=== PATIENT | male | born 1935 | race Caucasian/White ===

== ENCOUNTER 2022-11-25 11:12 | Observation (INO) ==
[2022-11-25 13:11] LABS: ABS Lymphocytes 0.9 10^3/uL (1.0-4.8); ABS Monocytes 0.6 10^3/uL (0.0-1.1); ABS Neutrophils 5.8 10^3/uL (1.5-7.6); Eosinophil % 0.3 %; Hematocrit 36.2 % (38-53); Hemoglobin 12.5 g/dL (13.2-16.3); Lymphocyte % 12.3 %; Mean Corpuscular Hemoglobin 31.2 pg (27-33); Mean Corpuscular Hgb Conc 34.5 g/dL (31-36); Mean Corpuscular Volume 90.5 fL (80-97); Mean Platelet Volume 7.6 fL (7.5-11.2); Platelet Count 213 10^3/uL (150-450); Red Blood Count 4.01 10^6/uL (4.06-5.63); Red Cell Distribution Width 15.7 % (12-17); White Blood Count 7.3 10^3/uL (3.6-10.2)
[2022-11-25 13:35] LABS: High Sens Troponin Baseline 5 pg/mL (<20)
[2022-11-25 14:15] LABS: ALT 10 U/L (7-52); AST 13 U/L (13-39); Alkaline Phosphatase 55 U/L (35-149); Anion Gap 7 mmol/L (2-16); Blood Urea Nitrogen 18 mg/dL (6-24); CO2 Carbon Dioxide 27 mmol/L (22-32); Calcium 9.5 mg/dL (8.6-10.3); Chloride 92 mmol/L (101-111); Creatine Kinase 44 U/L (10-223); Creatinine, Serum 0.79 mg/dL (0.67-1.17); Glucose 133 mg/dL (70-100); Lipase < 10 U/L (11.0-82.0); Magnesium 1.8 mg/dL (1.9-2.7); Potassium 4.4 mmol/L (3.5-5.0); Sodium 126 mmol/L (135-145); eGFR CKD-EPI 85.4 (>60)
[2022-11-25 14:46] LABS: Urine Appearance Clear; Urine Bilirubin Negative (Negative); Urine Blood Negative (Negative); Urine Color Straw; Urine Glucose Negative (Negative); Urine Ketones Negative (Negative); Urine Nitrite Negative (Negative); Urine Protein Negative (Negative); Urine Specific Gravity 1.006 (1.002-1.030); Urine Urobilinogen Negative (Negative)
[2022-11-25 14:52] LABS: High Sensitivity Troponin 1 Hr 8 pg/mL (<20)
[2022-11-25] MEDS ORDERED: Magnesium Sulfate 2 gm BAG 2 GM/50 ML BAG IVPB ONE (17:03)
[2022-11-25 17:39] LABS: Osmolality Serum 270 mOsm/kg (275-295)
[2022-11-25] MEDS ORDERED: Dextrose 50% Syringe 50 ml 25 GM/50 ML SYRINGE IV PUSH PRN (19:09)
[2022-11-25] MEDS ORDERED: hydrALAZINE 20 mg/ml 1 ML Vial IV IV SLOW PU PRN (19:11)
[2022-11-25] MEDS ORDERED: Lorazepam PYXIS KEY PRN (20:19)
[2022-11-25] MEDS ORDERED: LORazepam 2 mg VIAL 1 ml IV PUSH ONE (20:19)
[2022-11-25 21:01] LABS: TSH Ultra Thyroid Stim Horm 1.15 mcIU/mL (0.34-5.60)
[2022-11-25 21:03] LABS: Free T4 1.05 ng/dL (0.61-1.12)
[2022-11-25 21:12] LABS: Folate 19.53 ng/mL (5.90-24.80)
[2022-11-25 21:13] LABS: Vitamin B12 339 pg/mL (180-914)
[2022-11-25] MEDS: levETIRAcetam 500 MG IVPREMIX 500 MG/100 ML BAG IV SCH (22:34)
[2022-11-25] MEDS: Enoxaparin 40 MG/0.4 ML SYR SUBCUT SCH (22:49)
[2022-11-25] MEDS: Latanoprost 0.005% 2.5 ml BTL BOTH EYES SCH (22:49)
[2022-11-26 01:10] LABS: Urine Osmo 278 mOsm/kg (150-1150)
[2022-11-26 01:19] LABS: Urine Sodium Concentration 68 mmol/L
[2022-11-26 01:55] LABS: Urine Chloride Concentration 61 mmol/L
[2022-11-26 06:16] LABS: ABS Lymphocytes 0.8 10^3/uL (1.0-4.8); ABS Monocytes 0.6 10^3/uL (0.0-1.1); ABS Neutrophils 5.9 10^3/uL (1.5-7.6); ABS Nucleated RBC 0.01 10^3/ul; Hematocrit 35.1 % (38-53); Lymphocyte % 10.4 %; Mean Corpuscular Hemoglobin 31.1 pg (27-33); Mean Corpuscular Hgb Conc 34.3 g/dL (31-36); Mean Corpuscular Volume 90.8 fL (80-97); Mean Platelet Volume 7.9 fL (7.5-11.2); Nucleated Red Blood Cells % 0.1 /100 WBC (0.0-0.4); Platelet Count 210 10^3/uL (150-450); Red Blood Count 3.87 10^6/uL (4.06-5.63); Red Cell Distribution Width 15.4 % (12-17); White Blood Count 7.3 10^3/uL (3.6-10.2)
[2022-11-26 06:31] LABS: Calcium 9.2 mg/dL (8.6-10.3); Creatinine, Serum 0.87 mg/dL (0.67-1.17); Magnesium 2.3 mg/dL (1.9-2.7); Phosphorus 4.3 mg/dL (2.5-5.0); Potassium 4.5 mmol/L (3.5-5.0)
[2022-11-26] MEDS: levETIRAcetam 500 MG IVPREMIX 500 MG/100 ML BAG IV SCH ×2 (10:33→22:08)
[2022-11-26] MEDS: Latanoprost 0.005% 2.5 ml BTL BOTH EYES SCH (22:02)
[2022-11-26] MEDS: Enoxaparin 40 MG/0.4 ML SYR SUBCUT SCH (22:05)
[2022-11-27 06:18] LABS: ABS Eosinophils 0.1 10^3/uL (0.0-0.5); ABS Lymphocytes 1.7 10^3/uL (1.0-4.8); ABS Monocytes 0.7 10^3/uL (0.0-1.1); ABS Neutrophils 3.7 10^3/uL (1.5-7.6); Eosinophil % 1.4 %; Hematocrit 35.2 % (38-53); Hemoglobin 12.2 g/dL (13.2-16.3); Lymphocyte % 26.9 %; Mean Corpuscular Hemoglobin 31.2 pg (27-33); Mean Corpuscular Hgb Conc 34.6 g/dL (31-36); Mean Platelet Volume 7.8 fL (7.5-11.2); Nucleated Red Blood Cells % 0.1 /100 WBC (0.0-0.4); Platelet Count 189 10^3/uL (150-450); Red Blood Count 3.91 10^6/uL (4.06-5.63); Red Cell Distribution Width 15.4 % (12-17); White Blood Count 6.3 10^3/uL (3.6-10.2)
[2022-11-27 06:34] LABS: Calcium 9.1 mg/dL (8.6-10.3); Magnesium 2.2 mg/dL (1.9-2.7)
[2022-11-27 06:39] LABS: Creatinine, Serum 0.84 mg/dL (0.67-1.17); Phosphorus 3.3 mg/dL (2.5-5.0); eGFR CKD-EPI 83.9 (>60)
[2022-11-27] MEDS: levETIRAcetam 500 MG IVPREMIX 500 MG/100 ML BAG IV SCH (08:18)
[2022-11-27 14:10] VITALS: BP 152/79
== END 2022-11-27 14:50 | disposition home or self-care (01) ==
LOC: EDHOLD 11:12 → ED 11:12 → SUATTDRO 16:58 → MED 19:47
PROVIDERS: ADMIT Internal Medicine; ATTEND Internal Medicine

== ENCOUNTER 2023-01-21 09:48 | Inpatient (IN) ==
[2023-01-21 12:19] LABS: ABS Eosinophils 0.1 10^3/uL (0.0-0.5); ABS Lymphocytes 1.7 10^3/uL (1.0-4.8); ABS Monocytes 0.8 10^3/uL (0.0-1.1); ABS Neutrophils 5.1 10^3/uL (1.5-7.6); Eosinophil % 1.3 %; Hematocrit 41.6 % (38-53); Hemoglobin 14.6 g/dL (13.2-16.3); Lymphocyte % 22.3 %; Mean Corpuscular Hemoglobin 30.6 pg (27-33); Mean Corpuscular Hgb Conc 35.1 g/dL (31-36); Mean Platelet Volume 7.8 fL (7.5-11.2); Nucleated Red Blood Cells % 0.1 /100 WBC (0.0-0.4); Platelet Count 212 10^3/uL (150-450); Red Blood Count 4.78 10^6/uL (4.06-5.63); Red Cell Distribution Width 14.4 % (12-17); White Blood Count 7.7 10^3/uL (3.6-10.2)
[2023-01-21 12:29] LABS: Activated Partial Thrombo Time 33.2 seconds (26.0-38.0); INR 0.97 (0.88-1.18)
[2023-01-21 12:42] LABS: ALT 13 U/L (7-52); AST 17 U/L (13-39); Albumin 4.9 g/dL (3.2-5.2); Albumin/Globulin Ratio 1.6 (1-3); Alkaline Phosphatase 72 U/L (35-149); Anion Gap 11 mmol/L (2-16); Blood Urea Nitrogen 17 mg/dL (6-24); C Reactive Protein < 1.00 mg/L (<8.01); CO2 Carbon Dioxide 27 mmol/L (22-32); Calcium 10.5 mg/dL (8.6-10.3); Chloride 90 mmol/L (101-111); Creatinine, Serum 0.78 mg/dL (0.67-1.17); Glucose 131 mg/dL (70-100); Potassium 3.9 mmol/L (3.5-5.0); Sodium 128 mmol/L (135-145); Total Protein 7.9 g/dL (6.4-8.9); eGFR CKD-EPI 85.8 (>60)
[2023-01-21 12:43] LABS: Urine Appearance Cloudy; Urine Bilirubin Negative (Negative); Urine Blood 1+ (Negative); Urine Color Yellow; Urine Glucose 2+(150 mg/dL) (Negative); Urine Ketones Negative (Negative); Urine Nitrite Negative (Negative); Urine Protein Negative (Negative); Urine Specific Gravity 1.006 (1.002-1.030); Urine Urobilinogen Negative (Negative)
[2023-01-21 12:43] LABS: High Sens Troponin Baseline 6 pg/mL (<20)
[2023-01-21] MEDS ORDERED: NS 0.9% 1000 ml BAG 1,000 ML IV ONE (12:43)
[2023-01-21 13:08] LABS: Urine Bacteria 1+ (Absent); Urine Red Blood Cell Trace(0-2/hpf) (Absent); Urine White Blood Cell 3+(>20/hpf) (Absent)
[2023-01-21 13:57] LABS: High Sensitivity Troponin 1 Hr 6 pg/mL (<20)
[2023-01-21] MEDS ORDERED: cefTRIAXone 1 gm/50 mL D5W 1 GM/50 ML BAG IV ONE (15:03)
[2023-01-21] MEDS ORDERED: NS 0.9% 1000 ml BAG 1,000 ML IV SCH (18:00)
[2023-01-21] MEDS ORDERED: Dextrose 50% Syringe 50 ml 25 GM/50 ML SYRINGE IV PUSH PRN (19:17)
[2023-01-21 21:40] LABS: Calcium (PTH Intact) 9.4 mg/dL (8.6-10.3)
[2023-01-21 21:57] LABS: Osmolality Serum 275 mOsm/kg (275-295); TSH Ultra Thyroid Stim Horm 1.99 mcIU/mL (0.34-5.60)
[2023-01-21] MEDS ORDERED: Haloperidol 5 mg/ml SDV IV/IM 5 MG/ML AMP IV SLOW PU ONE ×2 (23:21)
[2023-01-22] MEDS ORDERED: Haloperidol 5 mg/ml SDV IV/IM 5 MG/ML AMP IV SLOW PU ONE ×4 (02:04→22:51)
[2023-01-22] MEDS: cefTRIAXone 1 gm/50 mL D5W 1 GM/50 ML BAG IV SCH (15:33)
[2023-01-23] MEDS ORDERED: OLANZapine IM (NF) 10 MG VIAL IM ONE (01:31)
[2023-01-23 06:13] LABS: Calcium 9.7 mg/dL (8.6-10.3); Creatinine, Serum 0.68 mg/dL (0.67-1.17); Potassium 3.8 mmol/L (3.5-5.0); eGFR CKD-EPI 89.4 (>60)
[2023-01-23] MEDS: cefTRIAXone 1 gm/50 mL D5W 1 GM/50 ML BAG IV SCH (17:26)
[2023-01-24 05:54] LABS: Calcium 9.3 mg/dL (8.6-10.3); Creatinine, Serum 0.73 mg/dL (0.67-1.17); Potassium 4.3 mmol/L (3.5-5.0); eGFR CKD-EPI 87.5 (>60)
[2023-01-24] MEDS: Aspirin EC 81 mg TAB.EC (enteric coated) PO SCH (10:19)
[2023-01-24 12:39] LABS: XCalcitriol 24 pg/mL (18-64)
[2023-01-24 13:45] LABS: Albumin 3.4 g/dL (3.4-4.7); Flag, M-protein Isotype Negative (Negative); Total Protein 6.5 g/dL (6.3 - 7.9)
[2023-01-24] MEDS: cefTRIAXone 1 gm/50 mL D5W 1 GM/50 ML BAG IV SCH (15:21)
[2023-01-25] MEDS ORDERED: Haloperidol 5 mg/ml SDV IV/IM 5 MG/ML AMP IV SLOW PU ONE (04:47)
[2023-01-25] MEDS: Aspirin EC 81 mg TAB.EC (enteric coated) PO SCH (09:14)
[2023-01-25] MEDS: cefTRIAXone 1 gm/50 mL D5W 1 GM/50 ML BAG IV SCH (15:21)
[2023-01-25] MEDS: Heparin 5000 UNITS/ML 1 mL VIAL SUBCUT SCH (19:58)
[2023-01-25] MEDS: Magnesium Hydroxide LIQ 30 ML UDC PO PRN (19:58)
[2023-01-25] MEDS: Senna TAB 8.6 mg TAB PO PRN (19:58)
[2023-01-26] MEDS: Senna TAB 8.6 mg TAB PO PRN (09:31)
[2023-01-26] MEDS: Heparin 5000 UNITS/ML 1 mL VIAL SUBCUT SCH ×2 (09:31→20:51)
[2023-01-26] MEDS: Aspirin EC 81 mg TAB.EC (enteric coated) PO SCH (09:31)
[2023-01-26] MEDS: cefTRIAXone 1 gm/50 mL D5W 1 GM/50 ML BAG IV SCH (15:15)
[2023-01-26] MEDS: Magnesium Hydroxide LIQ 30 ML UDC PO PRN (20:51)
[2023-01-27] MEDS: Heparin 5000 UNITS/ML 1 mL VIAL SUBCUT SCH ×2 (09:18→20:30)
[2023-01-27] MEDS: Aspirin EC 81 mg TAB.EC (enteric coated) PO SCH (09:18)
[2023-01-27] MEDS: Senna TAB 8.6 mg TAB PO PRN (09:33)
[2023-01-27] MEDS: Magnesium Hydroxide LIQ 30 ML UDC PO PRN ×3 (09:33→20:31)
[2023-01-27] MEDS ORDERED: Glycerin ADULT 2.4 gm SUPP PR ONE (14:30)
[2023-01-27] MEDS: cefTRIAXone 1 gm/50 mL D5W 1 GM/50 ML BAG IV SCH (15:32)
[2023-01-27 15:53] LABS: Rapid COVID-19 Molecular Undetected (Undetected)
[2023-01-27] MEDS ORDERED: Magnesium Hydroxide LIQ 30 ML UDC PO ONE (22:13)
[2023-01-28 05:05] VITALS: BP 156/67
[2023-01-28] MEDS: Heparin 5000 UNITS/ML 1 mL VIAL SUBCUT SCH (08:17)
[2023-01-28] MEDS: Aspirin EC 81 mg TAB.EC (enteric coated) PO SCH (08:17)
[2023-01-28 14:51] LABS: PTH Related Peptide 1.2 pmol/L (< or = 4.2)
[2023-01-28] MEDS ORDERED: cefTRIAXone 1 gm/50 mL NS BAG 1 GM/50 ML BAG IVPB SCH (15:00)
== END 2023-01-28 10:15 | DRG 71 ==
LOC: ED 09:48 → SUATTDRO 16:27 → EDHOLD 16:27 → MED 19:16
PROVIDERS: ADMIT Internal Medicine; ATTEND Internal Medicine